=== PATIENT | female | born 1980 | race Caucasian/White ===

== ENCOUNTER 2017-06-12 09:00 | Emergency (ER) | payer SELFPAY ==
[~2017-06-12 09:00] MED LIST: EZFE 200200 MG; FERROUS SULFAT325 MG PO; MOTRIN800 MG PO; PERCOCET 10/3251 TA1 PO; PRENATAL COMPLE1 TAB; PRENATAL COMPLE1 TAB PO
== END 2017-06-12 11:14 | disposition home or self-care (01) ==
LOC: D.ER 09:00
DX: J11.1 Influenza due to unidentified influenza virus with other respiratory manifestations (principal); M79.1 Myalgia; R05 Cough; R09.89 Other specified symptoms and signs involving the circulatory and respiratory systems

== ENCOUNTER 2017-08-24 16:03 | Emergency (ER) | payer SELFPAY | END 2017-08-24 20:58 | disposition home or self-care (01) | LOC: D.ER 16:03 | DX: S99.912A Unspecified injury of left ankle, initial encounter (principal); X50.1XXA Overexertion from prolonged static or awkward postures, initial encounter; Y93.89 Activity, other specified; Y92.019 Unspecified place in single-family (private) house as the place of occurrence of the external cause ==

== ENCOUNTER 2019-09-06 15:08 | Emergency (ER) | payer MEDICAID ==
[~2019-09-06] VITALS: Ht 157.5 cm; Wt 95.5 kg
[2019-09-06 15:14] VITALS: Ht 157.5 cm; Wt 95.5 kg
[2019-09-06] MEDS ORDERED: AUGMENTIN 875-11 TAB PO (17:14)
[2019-09-06 17:49] VITALS: BP 120/66
== END 2019-09-06 17:49 | disposition home or self-care (01) ==
LOC: D.ER 15:08
PROVIDERS: Family Medicine
DX: J02.0 Streptococcal pharyngitis (principal); H92.03 Otalgia, bilateral; R07.0 Pain in throat; R50.9 Fever, unspecified; R51 Headache